=== PATIENT | male | born 1960 | race Caucasian/White ===

== ENCOUNTER 2017-04-09 19:56 | Emergency (ER) | payer OTHER ==
[2017-04-09 20:10] VITALS: BP 180/93; PULSE 88; RESP 16; TEMP 99.5; O2SAT 94
--- NOTE | 2017-04-09 20:46 | EDPHY ---
H & P Stated Complaint: L wrist surgery yesterday, now L hand painful, swollen, fingers discolored - Personal History Current Tetanus/Diphtheria Vaccine: Yes - Medical/Surgical History Hx Asthma: No Hx Chronic Respiratory Disease: No Hx Diabetes: Yes Hx Cardiac Disease: No Hx Renal Disease: No Hx Cirrhosis: No Hx Alcoholism: No Hx HIV/AIDS: No Hx Splenectomy or Spleen Trauma: No Other PMH: PMHx: DMII, HTN, colon CA, hyperlipidemia, pancreatitis, varicose veins bilat lower extremities. PSHx: L wrist 03/2017, LLE varicosities removed, - Social History Smoking Status: Never smoked HPI/ROS: Chief complaint: Left hand pain and discoloration after surgery History of present illness: This is a 56-year-old male who presents to the emergency department for left hand pain and discoloration after undergoing wrist surgery for carpal tunnel syndrome yesterday. Patient states he started to notice his fingers become purplish. They are sore. He denies other associated signs or symptoms including no fevers, no abnormal coolness or paresthesias in the finger, no trauma since the surgery. (Javon Pelaez) - Physical Exam Exam: General: Alert, nontoxic Skin: Incision sites appear to be healing well without dehiscence or signs of infection. There is contusion to the hand and fingers. Musculoskeletal: He can move the fingers well. The wrist is not moved secondary to no recent surgery. Vascular: Capillary refill is brisk in all digits of the right hand. Radial pulses 2+. Neurologic: Sensation intact in upper digit of the right hand. (Javon Pelaez) Constitutional: Initial Vital Signs Temperature (C) 37.5 C 04/09/17 20:05 Heart Rate 88 04/09/17 20:05 Respiratory Rate 16 04/09/17 20:05 Blood Pressure 180/93 H 04/09/17 20:05 O2 Sat (%) 94 04/09/17 20:05 O2 Delivery Mode Room Air Allergies/Adverse Reactions: lisinopril Allergy (Verified 04/09/17 20:03) Home Medications: Medication Instructions Recorded Amlodipine Besylate 04/09/17 Aspirin 04/09/17 Atenolol 04/09/17 Atorvastatin Calcium 04/09/17 GLIPIZIDE 04/09/17 Humulin R 100 units/ml (*) 04/09/17 Losartan-Hctz 100-25 mg Tab 04/09/17 Metformin 1000 mg 04/09/17 [place] 3/Dha/Epa/Other Om3/D3 04/09/17 Omeprazole 04/09/17 [place] Bismuth 04/09/17 Medical Decision Making ED Course/Re-evaluation: The patient was seen under the supervision of my secondary supervising physician Dr. Vanessa Craven. Patient presents to the emergency department concerned for pain and discoloration to his right hand after surgery yesterday. Careful evaluation does reveal that he is neurovascularly intact. This appears to be bruising from the surgery. I consulted with his orthopedic group , physician personalized living assistant Fracisco. He is comfortable with patient being discharged home after splint was loosened and following up in clinic. As patient's splint was coming apart from old bleeding he was re-splinted in the same fashion as when he arrived. Discharged home. Home care is discussed including how to monitor his capillary refill in all digits of the hand. Return precautions are given. (Javon Pelaez) The patient was evaluated and managed by the physician personalized living assistant. I have reviewed this chart and I agree with the findings and plan of care as documented , as indicated by my signature. I am the secondary supervising physician. ( Vanessa Craven) Differential Diagnosis: Included but not limited to contusion, neurovascular compromise, infection ( Javon Pelaez) Departure - Departure Disposition: Home, Routine, Self-Care Clinical Impression: Contusion Qualifiers: Encounter type: initial encounter Contusion area: hand Laterality: right Qualified Code(s): S60.221A - Contusion of right hand, initial encounter Condition: Good Instructions: Contusion in Adults (ED) Additional Instructions: Follow-up with her hand doctor in the next 1-2 days for recheck Keep hand elevated as much as possible If symptoms worsen or new symptoms develop return to the emergency room for recheck Referrals: CARLO ALCAZAR [Other] - As per Instructions
== END 2017-04-09 21:35 | disposition home or self-care (01) ==
DX: M96.830 Postprocedural hemorrhage of a musculoskeletal structure following a musculoskeletal system procedure (principal); I10 Essential (primary) hypertension; E11.9 Type 2 diabetes mellitus without complications; Z79.82 Long term (current) use of aspirin; Z79.84 Long term (current) use of oral hypoglycemic drugs; Z85.038 Personal history of other malignant neoplasm of large intestine
CPT/HCPCS: A4565